=== PATIENT | male | born 1950 | race Caucasian/White ===

== ENCOUNTER 2020-05-15 10:57 | Observation (INO) | payer MEDICARE, OTHER ==
[~2020-05-15] VITALS: Ht 190.5 cm; Wt 125.0 kg
[2020-05-15 12:46] VITALS: BP 196/98
[2020-05-15] MEDS ORDERED: AMLO2.5T5 PO (12:51)
[2020-05-15] MEDS ORDERED: ASPI81TA45 PO (12:55)
[2020-05-15] MEDS ORDERED: HYDR-3342 PO (12:55)
[2020-05-15] MEDS ORDERED: FLEC50TA25 PO (12:55)
[2020-05-15] MEDS ORDERED: Fish Oil PO (12:55)
[2020-05-15] MEDS ORDERED: ATOR20TA37 PO (12:55)
[2020-05-15] MEDS ORDERED: LEVO200T5 PO (12:56)
[2020-05-15] MEDS ORDERED: MELA10TA PO (12:56)
[2020-05-15] MEDS ORDERED: VITA1CAP PO (12:58)
[2020-05-15] MEDS ORDERED: TAMS-11 PO (12:58)
[2020-05-15] MEDS ORDERED: CHOL10003 PO (12:58)
[2020-05-15 12:59] LABS: BASOPHILS % (AUTO) 1 % (0-1); EOSINOPHILS % (AUTO) 1 % (1-7); LYMPHOCYTES % (AUTO) 16 % (22-44); MEAN CORPUSCULAR HEMOGLOBIN 30.4 pg (27.5-34.5); MEAN CORPUSCULAR HGB CONC 33.7 g/dL (33.2-36.2); MEAN PLATELET VOLUME 7.9 fL (7.4-10.4); MONOCYTES % (AUTO) 11 % (2-9); NEUTROPHILS % (AUTO) 71 % (42-75); PLATELET COUNT 137 x10^3/uL (130-400); RED CELL DISTRIBUTION WIDTH 14.4 % (9.4-14.8)
[2020-05-15] MEDS ORDERED: PLEASE ENTER HEIGHT AND WEIGHT MC SCH (13:00)
[2020-05-15] MEDS: SODIUM CHLORIDE 0.9% 1,000 ML IV SCH ×2 (13:00→18:09)
[2020-05-15] MEDS ORDERED: CEFAZOLIN PMX 2GM/50ML 50 ML IVPB ONE (13:00)
[2020-05-15 13:08] LABS: INTERNATIONAL NORMALIZED RATIO 1.21 (0.93-1.1); PROTHROMBIN TIME 12.9 Seconds (9.6-11.5)
[2020-05-15 13:09] LABS: ANION GAP 5 mmol/L (5-15); CALCIUM 9.1 mg/dL (8.5-10.1); CHLORIDE 108 mmol/L (98-107)
[2020-05-15 13:10] LABS: CREATININE 0.98 mg/dL (0.7-1.3)
[2020-05-15 13:18] LABS: MD NO
[2020-05-15] MEDS ORDERED: FENTANYL PF 100 MCG/2ML ONE (14:05)
[2020-05-15] MEDS ORDERED: LIDOCAINE 2%, 20ML ONE (14:05)
[2020-05-15] MEDS ORDERED: CEFAZOLIN 1,000 MG ONE (14:05)
[2020-05-15] MEDS ORDERED: MIDAZOLAM 1 MG/ML, 5ML ONE (14:05)
[2020-05-15] MEDS ORDERED: ACETAMINOPHEN 325 MG TABLET PO PRN (15:30)
[2020-05-15] MEDS ORDERED: ZOLPIDEM 5MG TABLET PO PRN (15:30)
[2020-05-15] MEDS ORDERED: HOLD MEDICATION MC PRN (15:30)
[2020-05-15] MEDS ORDERED: hydrALAzine 20 MG/ML, 1ML ONE (15:42)
[2020-05-15] MEDS ORDERED: hydrALAzine 20 MG/ML, 1ML IV PRN ×2 (16:00)
[2020-05-15] MEDS: FLECAINIDE 100MG TABLET PO SCH (17:43)
[2020-05-15 17:45] VITALS: BP 94/64
[2020-05-15 20:59] VITALS: BP 131/84
[2020-05-15] MEDS ORDERED: ATORVASTATIN 20 MG TABLET PO SCH (21:00)
[2020-05-15] MEDS: TAMSULOSIN 0.4 MG CAP.ER.24H PO SCH (21:29)
[2020-05-15] MEDS: METOPROLOL TARTRATE 25 MG TAB PO SCH (21:29)
[2020-05-15] MEDS: SODIUM CHLORIDE FLUSH 10ML SYR IVF SCH (21:30)
[2020-05-16 00:16] VITALS: BP 98/64
[2020-05-16 00:18] VITALS: BP 113/74
[2020-05-16] MEDS: SODIUM CHLORIDE 0.9% 1,000 ML IV SCH (05:00)
[2020-05-16] MEDS: FLECAINIDE 100MG TABLET PO SCH (05:00)
[2020-05-16 05:21] VITALS: BP 133/85
[2020-05-16] MEDS: METOPROLOL TARTRATE 25 MG TAB PO SCH (05:22)
[2020-05-16] MEDS ORDERED: LEVOTHYROXINE 200 MCG TABLET PO SCH (06:00)
[2020-05-16 07:38] VITALS: BP 110/73
[2020-05-16] MEDS ORDERED: ACET325T26 PO (07:48)
[2020-05-16] MEDS: TAMSULOSIN 0.4 MG CAP.ER.24H PO SCH (08:19)
[2020-05-16] MEDS: SODIUM CHLORIDE FLUSH 10ML SYR IVF SCH (08:20)
[2020-05-16] MEDS ORDERED: CHOLECALCIFEROL 5,000u TAB PO SCH (09:00)
[2020-05-16] MEDS ORDERED: AMLODIPINE 2.5 MG TABLET PO SCH (09:00)
[2020-05-16] MEDS ORDERED: ASPIRIN 81 MG TABLET EC PO SCH (09:00)
== END 2020-05-16 10:55 | disposition home or self-care (01) ==
LOC: CACL 10:57 → 5SO 16:30 → DCLOUNGE 05-16 10:45
PROVIDERS: ADMIT Internal Medicine Clinical Cardiac Electrophysiology; ATTEND Internal Medicine Clinical Cardiac Electrophysiology
DX: I49.5 Sick sinus syndrome (principal); I48.0 Paroxysmal atrial fibrillation; R55 Syncope and collapse; I10 Essential (primary) hypertension; G47.30 Sleep apnea, unspecified; Z51.81 Encounter for therapeutic drug level monitoring; Z79.82 Long term (current) use of aspirin; Z79.899 Other long term (current) drug therapy
CPT/HCPCS: 33208; 36415; 71045; 71046; 80048; 85025; 85610; 93005; 96361; 96374; 99156; 99157; C1779; C1785; C1892; G0378; J0360; J0690; J2250; J3010; J3490; J7030

== ENCOUNTER 2020-07-28 11:02 | Day surgery (SDC) | payer MEDICARE, OTHER ==
[~2020-07-28 11:02] MED LIST: ACET325T26 PO; AMLO2.5T5 PO; ASPI81TA45 PO; ATOR20TA37 PO; CHOL10003 PO; FLEC50TA25 PO; FURO20TA3 PO; Fish Oil PO; HYDR-3342 PO; LEVO200T5 PO; MELA10TA PO; POTA20TA6 PO; TAMS-11 PO; VITA1CAP PO
== END 2020-07-28 12:30 | disposition home or self-care (01) ==
LOC: CACL 11:02
PROVIDERS: ATTEND Internal Medicine Clinical Cardiac Electrophysiology
DX: Z02.9 Encounter for administrative examinations, unspecified (principal)